=== PATIENT | female | born 1955 | race Caucasian/White ===

== ENCOUNTER 2021-01-10 21:20 | Emergency (ER) | payer OTHER, MEDICARE ==
[~2021-01-10] VITALS: Ht 160 cm; Wt 78.9 kg
[2021-01-10 21:31] VITALS: BP_SYST 146
[2021-01-10] MEDS ORDERED: IBUPROFEN 600 MG TABLET PO ONE (22:30)
[2021-01-10] MEDS ORDERED: MORPHINE 4 MG INJ. 4 MG/ML VIAL IVP ONE (22:30)
[2021-01-10 23:30] VITALS: BP_SYST 148
[2021-01-11] MEDS ORDERED: PROMETHAZINE INJ.Non-Formulary 25 MG/ML AMP IM ONE
[2021-01-11] MEDS ORDERED: MORPHINE 4 MG INJ. 4 MG/ML VIAL IM ONE
[2021-01-11] MEDS ORDERED: PROCHLORPERAZINE EDISYLATE 10 MG/2 ML VIAL ONE (00:09)
[2021-01-11] MEDS ORDERED: PROCHLORPERAZINE EDISYLATE 10 MG/2 ML VIAL IM ONE (00:15)
[2021-01-11] MEDS ORDERED: HYDR-3917 PO (00:18)
== END 2021-01-11 00:28 | disposition home or self-care (01) ==
LOC: SED 21:20
DX: S42.212A Unspecified displaced fracture of surgical neck of left humerus, initial encounter for closed fracture (principal); S00.83XA Contusion of other part of head, initial encounter; W18.39XA Other fall on same level, initial encounter; Y93.89 Activity, other specified; Y92.89 Other specified places as the place of occurrence of the external cause; Y99.8 Other external cause status
CPT/HCPCS: 73030; 73060; 73090; 96372; 99284; J0780; J2270; J2550